=== PATIENT | female | born 1970 ===

== ENCOUNTER 2020-05-24 12:02 | Outpatient (CLI) | payer OTHER | END 2020-05-24 18:00 | disposition home or self-care (01) | LOC: PPH VACUNA 12:02 | DX: Z23 Encounter for immunization (principal) ==

== ENCOUNTER → 2021-01-27 15:00 | Outpatient (CLI) | payer OTHER | END | disposition home or self-care (01) | LOC: PPH VACUNA 15:00 | DX: Z23 Encounter for immunization (principal) ==

== ENCOUNTER 2021-02-16 13:53 | Emergency (ER) | payer OTHER ==
[~2021-02-16] VITALS: Ht 167.6 cm; Wt 57.2 kg
== END 2021-02-16 14:45 ==
LOC: ER 13:53
DX: S91.204A Unspecified open wound of right lesser toe(s) with damage to nail, initial encounter (principal); X58.XXXA Exposure to other specified factors, initial encounter; Y93.89 Activity, other specified; Y92.89 Other specified places as the place of occurrence of the external cause; Y99.8 Other external cause status

== ENCOUNTER 2021-05-29 09:00 | Outpatient (CLI) | payer OTHER | END 2021-05-29 09:30 | disposition home or self-care (01) | LOC: ASH CLINIC 09:00 | PROVIDERS: ATTEND Emergency Medicine | DX: U07.1 COVID-19 (principal); Z23 Encounter for immunization ==